=== PATIENT | female | born 1970 | race Caucasian/White ===

== ENCOUNTER 2020-04-28 19:03 | Emergency (ER) | payer OTHER ==
[2020-04-28 19:13] VITALS: BP 148/76
--- NOTE | 2020-04-28 19:47 | XRAY Report ---
PROCEDURE: Finger(s) LT INDICATIONS: Trauma TECHNIQUE: AP hand, 2 views of the left finger(s) acquired. COMPARISON: None. FINDINGS: Bones: No fractures or dislocations. No suspicious bony lesions. Soft tissues: No suspicious soft tissue calcifications. IMPRESSION: No definite fracture however follow-up radiographs in 10 days could be performed if the patient's sym ptoms do not improve to exclude occult fracture/assess for healing sclerosis. Reviewed by: Tim Pulido MD on 04/28/2020 7:46 PM PDT Approved by: Tim Pulido MD on 04/28/2020 7:46 PM PDT Station ID: [id number]
--- NOTE | 2020-04-28 19:50 | ED Physician Documentation ---
PD HPI UPPER EXT INJURY - Stated complaint Stated Complaint: THUMB INJ - Chief complaint Chief Complaint: Trauma Ext - History obtained from History obtained from: Patient - History of Present Illness Location: Left, Finger (thumb) Type of injury: Blunt / blow Where injury occurred: Home Timing - onset: How many hours ago (2) Timing - duration: Hours (2) Timing - details: Abrupt onset Pain level max: 5 Pain level now: 5 Improved by: Rest, Ice, Immobilization Worsened by: Moving, Palpating Associated symptoms: No: Weakness, Numbness, Tingling, Swelling, Discolored Contributing factors: No: Anticoagulated Recently seen: Not recently seen Review of Systems Constitutional: denies: Fever, Chills GI: denies: Vomiting : denies: Now EGA PD PAST MEDICAL HISTORY - Past Medical History Past Medical History: No - Past Surgical History Past Surgical History: Yes General: Cholecystectomy /SPARE HAND CARDING: Breast implants - Present Medications Home Medications: Ambulatory Orders Medication Instructions Recorded Confirmed Escitalopram Oxalate [Lexapro] 20 mg PO DAILY 04/28/20 04/28/20 - Allergies Allergies/Adverse Reactions: Allergies Allergy/AdvReac Type Severity Reaction Status Date / Time sulfamethoxazole Allergy Intermediate Edema Verified 04/28/20 19:11 [From ] trimethoprim [From ] Allergy Intermediate Edema Verified 04/28/20 19:11 lidocaine Allergy Rash Verified 04/28/20 19:11 - Social History Does the pt smoke?: No Smoking Status: Never smoker Does the pt drink ETOH?: Yes Does the pt have substance abuse?: No PD ED PE NORMAL - Vitals Vital signs reviewed: Yes - General General: Alert and oriented X 3, No acute distress - HEENT HEENT: Moist mucous membranes - Derm Derm: Warm and dry - Extremities Extremities: Other (Left hand - Tenderness to palpation over the left left thenar eminence as well as the proximal phalanx of the left thumb. Neurovascular intact. Slight bruising. Full range of motion present though with pain. No deformity. Normal examination of the wrist and remainder of the hand) - Neuro Neuro: Alert and oriented X 3 Results - Vitals Vitals: Vital Signs - 24 hr 04/28/20 19:11 Temperature 36.9 C Heart Rate 100 Respiratory 19 Rate Blood Pressure 148/76 H O2 Saturation 99 Oxygen O2 Source Room air - Rads (name of study) L Thumb x-ray Radiology: Prelim report reviewed, EMP read contemporaneously, See rad report (No acute abnormality) PD MEDICAL DECISION MAKING - ED course Complexity details: reviewed results, re-evaluated patient, considered differential, d/w patient ED course: 50-year-old female with a left thumb sprain. No scaphoid tenderness. No wrist tenderness. Placed in a Velcro thumb spica for comfort. We will continue supportive care and have her follow-up with her doctor. Patient counseled regarding signs and symptoms for which I believe and urgent re-evaluation would be necessary. Patient with good understanding of and agreement to plan and is comfortable going home at this time This document was made in part using voice recognition software. While efforts are made to proofread this document, sound alike and grammatical errors may occur. Departure - Departure Disposition: 01 Home, Self Care Clinical Impression: Left thumb sprain Qualifiers: Encounter type: initial encounter Sprain of finger site: metacarpophalangeal joint Qualified Code(s): S63.642A - Sprain of metacarpophalangeal joint of left thumb, initial encounter Condition: Good Instructions: ED Sprain Finger Follow-Up: JENNIFER GODWIN, [Primary Care Provider] - Within 1 week Comments: Wear the Velcro thumb spica as needed for comfort. Follow-up with your doctor in 1 week for recheck to ensure proper healing. You can use Motrin or Tylenol as needed for pain. Your x-ray does not show any acute abnormalities today. Discharge Date/Time: 04/28/20 19:59
== END 2020-04-28 19:59 | disposition home or self-care (01) ==
LOC: ED 19:03
DX: S63.642A Sprain of metacarpophalangeal joint of left thumb, initial encounter (principal); W22.8XXA Striking against or struck by other objects, initial encounter; Y93.H2 Activity, gardening and landscaping; Y92.009 Unspecified place in unspecified non-institutional (private) residence as the place of occurrence of the external cause
CPT/HCPCS: 99282; 99283

== ENCOUNTER 2022-08-05 15:35 | Outpatient (CLI) | payer OTHER ==
[~2022-08-05 15:35] MED LIST: GADOBUTROL 10 MMOL/10 ML VIAL ONE
[2022-08-05] MEDS ORDERED: GADOBUTROL 10 MMOL/10 ML VIAL IVP ONE (17:17)
--- NOTE | 2022-08-06 09:46 | MRI Report ---
PROCEDURE: HAND W/WO - RT INDICATIONS: SWELLING MASS OR LUMP OF RIGHT UPPER LIMB CONTRAST: GADAVIST 8.6 ML TECHNIQUE: Noncontrast coronal T1 spin echo and T2 fast spin echo with fat saturation, axial proton density fast spin echo and T2 fast spin echo with fat saturation, axial T1 spin echo with fat saturation, sagitta l T1 spin echo and STIR through the hand and fingers. Post-contrast axial, coronal, and sagittal T1 spin echo through the hand and fingers. COMPARISON: None. FINDINGS: Image quality: Excellent. Bones: The bones are normally aligned, without marrow contusions or fractures. No intra-osseous les ions. Mild degenerative changes of the 1st carpometacarpal joint and 1st metacarpophalangeal joint. No abnormal intraosseous enhancement. Soft tissues: No enhancing soft tissue mass. A skin marker is seen at the volar ulnar aspect of the hand at the level of the 4th metacarpal head. Subtle small hypoattenuating lesion is seen in the ches t obtained in the soft tissues immediately deep to the skin marker and superficial to the 4th flexor tendons. This lesion measures 3 x 1 mm axial dimensions (image 32 of series 5). No other hypoattenuat ing lesion in the sigmoid colon. There is mild tenosynovitis of the 3rd and 4th flexor tendons at the level of the proximal phalanges. Mild flexor pollicis longus tenosynovitis. The visualized extensor tendons are intact. Visualized muscles demonstrate normal bulk and internal signal. No intramuscular masses identified. No significant joint effusion or synovial hypertrophy. IMPRESSION: 1.Small hypointense focus in the subcutaneous tissues immediately deep to the skin marker overlying t he 4th flexor tendons likely corresponds to the palpable abnormality, and is suspicious for mild or e camacho Dupuytren's disease. 2.Mild tenosynovitis of the 3rd and 4th flexor tendons at the level of the proximal phalanges. 3.Mild flexor pollicis longus tenosynovitis. Reviewed by: Evangelista Bae MD on 08/06/2022 9:44 AM PDT Approved by: Evangelista Bae MD on 08/06/2022 9:44 AM PDT Station ID: [id number]
== END 2022-08-05 15:36 | disposition home or self-care (01) ==
LOC: DI 15:35
PROVIDERS: ATTEND Orthopaedic Surgery
DX: R22.31 Localized swelling, mass and lump, right upper limb (principal); M18.11 Unilateral primary osteoarthritis of first carpometacarpal joint, right hand; M19.041 Primary osteoarthritis, right hand; M65.9 Synovitis and tenosynovitis, unspecified
CPT/HCPCS: 73220; A9585